=== PATIENT | female | born 2000 | race Caucasian/White ===

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

== ENCOUNTER 2021-12-13 15:34 | Emergency (ER) | payer OTHER ==
[2021-12-13] MEDS ORDERED: Sodium Chloride 0.9% 10 ML Syringe FLUSH PRN (18:25)
[2021-12-13] MEDS ORDERED: Cephalexin 500 MG Cap PO ONE (20:19)
== END 2021-12-13 20:25 | disposition home or self-care (01) ==
LOC: JD.ED 15:34
DX: N39.0 Urinary tract infection, site not specified (principal); R31.9 Hematuria, unspecified
CPT/HCPCS: 36415; 76817; 81001; 81025; 84702; 85025; 86900; 86901; 87086; 99284; A9270

== ENCOUNTER 2022-11-11 15:59 | Inpatient (IN) | payer OTHER ==
[2022-11-11 16:31] LABS: BASOPHILS ABSOLUTE AUTO 0.01 K/mm3 (0.01-0.08); BASOPHILS PERCENT AUTO 0.1 % (0.1-1.2); EOSINOPHILS ABSOLUTE AUTO 0.05 K/mm3 (0.04-0.36); EOSINOPHILS PERCENT AUTO 0.6 (0.7-5.8); HEMATOCRIT 35.5 % (34.1-44.9); IMMATURE GRAN ABSOLUTE AUTO 0.02 K/mm3 (0.00-0.10); IMMATURE GRAN PERCENT AUTO 0.2 % (<=1.0); LYMPHOCYTES ABSOLUTE AUTO 2.02 K/mm3 (1.18-3.74); LYMPHOCYTES PERCENT AUTO 23.3 % (19.3-51.7); MEAN CORPUSCULAR HEMOGLOBIN 28.1 pg (25.6-32.2); MEAN CORPUSCULAR HGB CONC 32.1 g/dl (32.2-35.5); MEAN PLATELET VOLUME 10.9 fl (9.4-12.3); MONOCYTES ABSOLUTE AUTO 0.39 K/mm3 (0.24-0.36); MONOCYTES PERCENT AUTO 4.5 % (4.7-12.5); NEUTROPHILS ABSOLUTE AUTO 6.18 K/mm3 (1.56-6.13); NEUTROPHILS PERCENT AUTO 71.3 % (34.0-71.1); RED BLOOD CELL COUNT 4.06 M/mm3 (3.98-5.22); WHITE BLOOD CELL COUNT,WBC 8.67 K/mm3 (3.98-10.04)
[2022-11-11 16:33] LABS: HEMOGLOBIN 11.4 gm/dl (11.2-15.7); MEAN CORPUSCULAR VOLUME 87.4 fl (79.4-94.8); PLATELET COUNT,PLT 157 K/mm3 (182-369)
[2022-11-11] MEDS ORDERED: Nalbuphine 10 MG/0.5 ML Syringe IVPUSH PRN (16:58)
[2022-11-11] MEDS ORDERED: Ondansetron 4 MG/2 ML SDV IVPUSH PRN (16:58)
[2022-11-11] MEDS ORDERED: Sodium Chloride 0.9% 10 ML Syringe FLUSH PRN (16:58)
[2022-11-11 17:00] LABS: CREATININE,URINE RAND 108.9 mg/dL (30.0-125.0); PROTEIN CREATININE RATIO,URINE 236.9 mg/g (0-149); PROTEIN,URINE RANDOM 25.8 mg/dL (0.0-11.8)
[2022-11-11] MEDS ORDERED: Oxytocin/Lactated Ringers 10 UNIT/1,000 ML BAG IV SCH ×2 (17:00)
[2022-11-11 17:03] LABS: CREATININE 0.5 mg/dL (0.55-1.02); EST CRCL DRUG DOSING (CG) 153.69 mL/min; URIC ACID 3.6 mg/dL (2.6-6.0)
[2022-11-11] MEDS: Lactated Ringers 1,000 ML IV SCH (19:51)
[2022-11-11] MEDS ORDERED: Sodium Chloride 0.9% 10 ML Syringe FLUSH SCH (21:00)
[2022-11-11] MEDS ORDERED: diphenhydrAMINE 50 MG/ML SDV IVPUSH PRN (23:18)
[2022-11-11] MEDS ORDERED: fentaNYL 100 MCG/2 ML SDV EPIDUR PRN (23:18)
[2022-11-11] MEDS ORDERED: Bupivacaine/fentaNYL/NS 100 ML Bag EPIDUR PRN (23:18)
[2022-11-11] MEDS ORDERED: ePHEDrine 50 MG/ML SDV IVPUSH PRN (23:18)
[2022-11-12] MEDS: Lactated Ringers 1,000 ML IV SCH
[2022-11-12] MEDS ORDERED: Ropivacaine 0.2% PF 2 MG/ML 20 ML SDV ONE (02:00)
[2022-11-12] MEDS ORDERED: Benzocaine/Menthol 20%-0.5% Spray 78 GM Cannister TOP PRN (04:18)
[2022-11-12] MEDS ORDERED: Ibuprofen 600 MG Tab PO PRN (04:18)
[2022-11-12] MEDS ORDERED: Witch Hazel Medicated Pads 40/Jar TOP PRN (04:18)
[2022-11-12] MEDS: Acetaminophen 325 MG Tab PO PRN ×2 (10:58→19:19)
[2022-11-12] MEDS: Docusate Sodium 100 MG Cap PO PRN ×2 (11:00→19:20)
== END 2022-11-13 10:30 | disposition home or self-care (01) | DRG 807 ==
LOC: JD.OBCHECK 15:59 → JD.OB 16:00 → JD.OBCHECK 18:02 → JD.OB 18:03 → OBSVTOIN 11-12 02:38 → JD.OB 11-12 02:39
PROVIDERS: ADMIT Obstetrics & Gynecology; ATTEND Obstetrics & Gynecology
PROC: 10E0XZZ Delivery of Products of Conception, External Approach (ICD-10-PCS; principal; 2022-11-12)
PROC: 10907ZC Drainage of Amniotic Fluid, Therapeutic from Products of Conception, Via Natural or Artificial Opening (ICD-10-PCS; 2022-11-12)
PROC: 3E033VJ Introduction of Other Hormone into Peripheral Vein, Percutaneous Approach (ICD-10-PCS; 2022-11-12)
PROC: 3E0R3BZ Introduction of Anesthetic Agent into Spinal Canal, Percutaneous Approach (ICD-10-PCS; 2022-11-12)
PROC: 00HU33Z Insertion of Infusion Device into Spinal Canal, Percutaneous Approach (ICD-10-PCS; 2022-11-12)
DX: O13.4 Gestational [pregnancy-induced] hypertension without significant proteinuria, complicating childbirth (principal); Z37.0 Single live birth; Z3A.38 38 weeks gestation of pregnancy
CPT/HCPCS: 36415; 51702; 59025; 59409; 82565; 82570; 83615; 84156; 84450; 84460; 84520; 84550; 85025; 86592; 86850; 86900; 86901; A9270-GY; J2590; J2795; J3490; J7120